=== PATIENT | male | born 1960 | race Caucasian/White ===

== ENCOUNTER 2023-06-22 07:34 | Day surgery (SDC) | payer BC, OTHER ==
[~2023-06-22 07:34] MED LIST: Lactated Ringers 1,000 ML IV SCH
[2023-06-22] MEDS ORDERED: Propofol 200 MG/20 ML SDV ONE ×2 (08:20→09:31)
[2023-06-22] MEDS ORDERED: fentaNYL 100 MCG/2 ML SDV ONE (08:20)
== END 2023-06-22 11:10 | disposition home or self-care (01) ==
LOC: VM.SDS 07:34
PROVIDERS: ATTEND Family Medicine
DX: Z12.11 Encounter for screening for malignant neoplasm of colon (principal); K57.30 Diverticulosis of large intestine without perforation or abscess without bleeding; N52.9 Male erectile dysfunction, unspecified; Z79.899 Other long term (current) drug therapy; Z87.891 Personal history of nicotine dependence
CPT/HCPCS: 00812; J2704; J3010; J7120